=== PATIENT | male | born 1935 | race Two or more races ===

== ENCOUNTER 2020-08-15 09:07 | Emergency (ER) | payer OTHER ==
[~2020-08-15] VITALS: Ht 172.7 cm; Wt 90.7 kg
[~2020-08-15 09:07] MED LIST: FINASTERIDE5 MG PO; SEPTRA DS TABLE1 TAB PO; TAMS0.4C PO
[2020-08-15] MEDS ORDERED: HYDROCHLOROTHIA25 MG PO (09:19)
[2020-08-15] MEDS ORDERED: NORVASC5 MG PO (09:19)
[2020-08-15] MEDS ORDERED: TAMS0.4C PO (09:19)
[2020-08-15] MEDS ORDERED: VASOTEC2.5 MG PO (09:19)
[2020-08-15] MEDS ORDERED: CIPRO500 MG PO (12:48)
[2020-08-15] MEDS ORDERED: NIZORAL SHAMPO120 ML TOP (12:48)
[2020-08-15] MEDS ORDERED: ITCH RELIEF15 G1 TOP (12:48)
== END 2020-08-15 13:05 | disposition home or self-care (01) ==
LOC: ER 09:07
DX: B35.8 Other dermatophytoses (principal); L03.115 Cellulitis of right lower limb; A49.01 Methicillin susceptible Staphylococcus aureus infection, unspecified site

== ENCOUNTER 2020-10-04 12:39 | Emergency (ER) | payer OTHER ==
[~2020-10-04] VITALS: Ht 170.2 cm; Wt 86.2 kg
[~2020-10-04 12:39] MED LIST changes: +CIPRO500 MG PO; +HYDROCHLOROTHIA25 MG PO; +ITCH RELIEF15 G1 TOP; +NIZORAL SHAMPO120 ML TOP; +NORVASC5 MG PO; +VASOTEC2.5 MG PO
[2020-10-04] MEDS ORDERED: ENALAPRIL MALEA10 MG PO (12:46)
[2020-10-04] MEDS ORDERED: TAMSULOSIN HCL0.4 MG PO (12:46)
[2020-10-04] MEDS ORDERED: AMLODIPINE BESYL5 MG PO (12:46)
[2020-10-04] MEDS ORDERED: HYDROCHLOROTH12.5 MG PO (12:46)
[2020-10-04] MEDS ORDERED: INTESTINEX680 M1 PO (16:31)
[2020-10-04] MEDS ORDERED: CLEOCIN HCL300 MG PO (16:31)
== END 2020-10-04 16:40 | disposition home or self-care (01) ==
LOC: ER 12:39
DX: L03.115 Cellulitis of right lower limb (principal)